=== PATIENT | female | born 1980 | race Two or more races ===

== ENCOUNTER 2024-03-11 09:35 | Emergency (ER) | payer BC, OTHER, SELFPAY ==
[2024-03-11 09:36] VITALS: BP 153/93; PULSE 82; TEMP 36.5; O2SAT 98; BMI 32.3
--- NOTE | 2024-03-11 09:58 | ED.URI1 ---
HPI - URI/Sore Throat General Chief Complaint: Ear Stated Complaint: COUGH/EAR PAIN Time Seen by Provider: 03/11/24 09:49 Source: patient and family History of Present Illness HPI Narrative: This patient is here with her son for complaint of sore throat she developed little ear pain yesterday and a cough. She has had symptoms for over 1 week. Her son was my patient several days ago with similar symptoms. She is not sure if she is running a fever but has had little bit warm feeling. She does not have nausea vomiting or diarrhea. Does not have severe aches and pains. Does not have a headache. She has not been on any medications or antibiotics. She does not use tobacco products. She does not have any shortness of breath just the cough. Sometimes it is a dry cough. Related Data Allergies Allergy/AdvReac Type Severity Reaction Status Date / Time No Known Drug Allergies Allergy Verified 03/11/24 09:41 Exam Narrative Exam Narrative: Awake alert pleasant communicates effectively herself and using her son who speaks fluent [place]. HEENT shows right TM to be normal. The left TM is well-visualized there is a nice cone of light there is no no erythema dullness or retraction. The ear canal appears normal. There is no submandibular or cervical adenitis. Her pharynx is slightly erythematous with no exudate swelling in the uvula appears normal. Her lungs are clear with no wheeze rales or rhonchi heart sounds are normal with no murmur. Her pulse to the extremities is normal her skin is warm and dry with no clamminess or diaphoresis. Constitutional Vital Signs, click to edit/add: Last Vital Signs Temp 97.7 F 03/11/24 09:36 Pulse 82 03/11/24 09:36 Resp 16 03/11/24 09:36 BP 153/93 H 03/11/24 09:36 Pulse Ox 98 03/11/24 09:36 O2 Del Method Room Air 03/11/24 09:36 Course Vital Signs Vital signs: Vital Signs Temperature 97.7 F 03/11/24 09:36 Pulse Rate 82 03/11/24 09:36 Respiratory Rate 16 03/11/24 09:36 Blood Pressure 153/93 H 03/11/24 09:36 Pulse Oximetry 98 03/11/24 09:36 Oxygen Delivery Method Room Air 03/11/24 09:36 Temperature 97.7 F 03/11/24 09:36 Pulse Rate 82 03/11/24 09:36 Respiratory Rate 16 03/11/24 09:36 Blood Pressure 153/93 H 03/11/24 09:36 Pulse Oximetry 98 03/11/24 09:36 Oxygen Delivery Method Room Air 03/11/24 09:36 MDM - URI/Sore Throat MDM Narrative Medical decision making narrative: This patient's vital signs clinical status and pulse oximetry do not suggest any lower respiratory tract infection. She has had this for over a week. Her son is also sick so there is quite possibly a viral infection. She does work in the public [employer] and is requesting couple days off work because she does not feel very well. Discharge Plan Discharge Stand Alone Forms: Portal Instructions Chief Complaint: Ear Clinical Impression: Upper respiratory infection Patient Disposition: Home, Self-Care Time of Disposition Decision: 10:01 Print Language: [place] Additional Instructions: May use [id number] Mucinex for head cold symptoms/Z-Otilio Referrals: Physician,Non-Staff, MD [Primary Care Provider] - 1 week
== END 2024-03-11 10:12 | disposition home or self-care (01) ==
PROVIDERS: Emergency Provider Emergency Medicine Emergency Medical Services
DX: J06.9 Acute upper respiratory infection, unspecified (principal)
CPT/HCPCS: 99283